=== PATIENT | female | born 1985 | race Caucasian/White ===

== ENCOUNTER 2016-10-20 18:09 | Observation (INO) | payer MEDICAID ==
[~2016-10-20 18:09] MED LIST: CIPRO500 MG PO; MOTRIN600 MG PO; NO HOME MEDS; NORCO 5/325 TAB1 TAB PO; PEN-VEE K500 MG PO; PRENA1 CHEW TA1.4 M1 PO
[2016-10-20 19:01] LABS: URINE BILIRUBIN NEGATIVE (NEG); URINE BLOOD NEGATIVE (NEG); URINE GLUCOSE (UA) NEGATIVE (NEG); URINE KETONE NEGATIVE (NEG); URINE LEUKOCYTE ESTERASE POSITIVE (NEG); URINE NITRITE NEGATIVE (NEG); URINE PROTEIN NEGATIVE (NEG); URINE SPECIFIC GRAVITY 1.005 (1.003-1.030)
[2016-10-20 19:02] LABS: URINE APPEARANCE HAZY; URINE COLOR PALE YELLOW
[2016-10-20 19:05] LABS: URINE RBC RARE /[HPF] (0-5)
[2016-10-20 19:06] LABS: URINE AMORPHOUS 1+; URINE BACTERIA 1+
[2016-10-20 19:17] LABS: BASO % 0.1 % (0-2); EOSINOPHIL ABSOLUTE COUNT 0.1 tho/cmm (0.0-0.7); HCT-HEMATOCRIT 31.5 % (34.0-49.0); HGB-HEMOGLOBIN 10.3 gm/dl (12.0-15.5); IMMATURE GRANULOCYTES ABSOLUTE 0.03 tho/cmm (0-0.03); IMMATURE GRANULOCYTES PERCENT 0.3 % (0-0.3); LYMPH % 17.1 % (20-45); LYMPH ABSOLUTE COUNT 1.7 tho/cmm (0.8-4.5); MCH (MEAN CORPUSCULAR HGB) 29.2 pg (28.0-32.0); MCHC MEAN CORPUSCULAR HGB CONC 32.7 % (32.0-36.0); MCV (MEAN CELL VOLUME) 89.2 fl (82.0-96.0); MEAN PLATELET VOLUME 11.3 cmc (9.4-12.4); MONO % 8.4 % (0-12); MONOCYTE ABSOLUTE COUNT 0.8 tho/cmm (0.0-1.2); NEUTROPHIL ABSOLUTE COUNT 7.3 tho/cmm (1.6-8.0); NEUTROPHIL-AUTOMATED 7.3 tho/cmm (1.6-8.0); NEUTROPHILS % 73.1 % (40-80); PLATELET COUNT 182 tho/cmm (150-450); RED BLOOD COUNT 3.53 mil/cmm (4.00-5.20)
[2016-10-20 19:33] LABS: ALB/GLOB RATIO 0.6 (0.8-2.0); ALBUMIN 2.5 g/dl (3.5-5.0); ALKALINE PHOSPHATASE 105 U/L (33-138); ALT/SGPT 23 U/L (12-78); ANION GAP 12 mmol/L (0-20); AST/SGOT 21 U/L (10-40); BILIRUBIN,DIRECT 0.1 mg/dl (0.0-0.3); BILIRUBIN,INDIRECT 0.2 mg/dL (0.0-1.0); BILIRUBIN,TOTAL 0.3 mg/dl (0-1.5); BLOOD UREA NITROGEN 6 mg/dl (6-24); CALCIUM 8.8 mg/dl (8.5-10.5); CARBON DIOXIDE-VENOUS 27 mmol/L (22-32); CHLORIDE 104 mmol/l (96-110); CREATININE 0.38 mg/dl (0.50-1.10); GLUCOSE 77 mg/dL (70-110); POTASSIUM 3.8 mmol/L (3.7-5.1); SODIUM 139 mmol/L (135-145); eGFR VALUE FOR BLACK >90 mL/Min
[2016-10-20 20:25] LABS: URINE CREATININE-RANDOM 20 mg/dl (30-125)
[2016-10-20 20:27] LABS: URINE PRT/CR RATIO 0.25 Ratio (0.0-0.20); URINE TOTAL PROTEIN-RANDOM <5.0 mg/dl (<11.8)
== END 2016-10-20 21:34 ==
LOC: LDR 18:09
PROVIDERS: ADMIT Obstetrics & Gynecology
DX: O99.89 Other specified diseases and conditions complicating pregnancy, childbirth and the puerperium (principal); R51 Headache; M54.5 Low back pain; Z3A.34 34 weeks gestation of pregnancy; Z91.011 Allergy to milk products; Z79.899 Other long term (current) drug therapy
CPT/HCPCS: J7121